=== PATIENT | female | born 1955 | race Caucasian/White ===

== ENCOUNTER → 2017-11-22 10:20 | Outpatient (CLI) | payer OTHER, SELFPAY ==
--- NOTE | 2017-11-22 10:25 | HPBI_ITS ---
MAMMOGRAPHY - BILATERAL SCREENING REASON FOR EXAM: Female, 62 years old. Routine annual screening examination. PERTINENT HISTORY: Grandmother with breast cancer. Aunt with breast cancer. TECHNIQUE: Digital bilateral breast tha (3D mammographic acquisition) in the CC and MLO projections. 2-D mediolateral oblique (MLO) and craniocaudad (CC) views of both breasts were obtained. CAD: Full Field Digital Mammography with Computer Added Detection was performed. COMPARISON: Comparison is made with prior study dated October 14, 2016 and April 10, 2014. FINDINGS: Breast Composition: The breasts are heterogeneously dense, which may obscure small masses. There are no dominant masses or suspicious calcifications. No other significant abnormalities are identified. There has been no significant change since the prior study. HPBI/SCREENING MAMM (CAD), BILAT IMPRESSION: Stable bilateral screening mammogram. Yearly follow-up mammogram recommended. (A) ASSESSMENT CATEGORY: BIRADS Category 1: Negative. A letter regarding these results will be sent to the patient by the facility within 30 days. Approximately 10% of breast cancers are not detected by mammography. A normal mammogram should not delay biopsy of a clinically suspicious abnormality. [id number] Electronically Signed: Harshad Robbins MD at 11:27 EST Tel [phone], Service support ,
== END ==
PROVIDERS: Family Provider Internal Medicine; PCP Internal Medicine; Visit Provider Internal Medicine
DX: Z12.31 Encounter for screening mammogram for malignant neoplasm of breast (principal)
CPT/HCPCS: 77063; 77067

== ENCOUNTER → 2018-07-23 10:12 | Outpatient (CLI) | payer OTHER, SELFPAY ==
--- NOTE | 2018-07-23 10:15 | RAD_ITS ---
STUDY: X-RAY - RIGHT KNEE REASON FOR EXAM: Female, 62 years old. Chronic pain TECHNIQUE: 4 view(s) of the knee. COMPARISON: None. FINDINGS: There is demineralization of the visualized distal femur. There is demineralization of the tibia and fibula. There is arthrosis of the proximal tibiofibular articulation. There is moderate degenerative arthrosis of the medial femorotibial compartment with moderate joint space narrowing. There is moderate degenerative arthrosis of the lateral femorotibial compartment with moderate joint space narrowing. There is moderate degenerative arthrosis of the patellofemoral articulation. The soft tissue structures are unremarkable. RAD/Knee 4 or More Views IMPRESSION: Moderate Degenerative arthrosis. Electronically Signed: Sonali Munoz MD at 18:28 EDT Tel , Service support ,
== END ==
PROVIDERS: Family Provider Internal Medicine; PCP Internal Medicine; Referring Provider Physician Assistant; Visit Provider Physician Assistant
DX: M25.561 Pain in right knee (principal)
CPT/HCPCS: 73564

== ENCOUNTER → 2018-08-11 08:49 | Outpatient (CLI) | payer OTHER, SELFPAY ==
--- NOTE | 2018-08-11 08:53 | CT_ITS ---
STUDY: CT MAXILLOFACIAL SINUSES REASON FOR EXAM: Female, 62 years old. Sinusitis, balloon surgery 2014, right-sided sinus surgery 1985. RADIATION DOSAGE (If Supplied By Facility): CTDIvol = ( 33.06 ) mGy, DLP = ( 767.73 ) mGycm TECHNIQUE: The patient was scanned in a multi detector CT scanner. High resolution axial imaging was performed without the administration of intravenous contrast material. Sagittal and coronal images were reconstructed. Individualized dose optimization techniques were used for this CT. COMPARISON: Sinus CT 08/14/2015. FINDINGS: FRONTAL SINUSES: Normal aeration, without mucosal inflammatory disease. ETHMOIDAL SINUSES: Normal aeration, without mucosal inflammatory disease. MAXILLARY SINUSES: Minimal mucoperiosteal thickening at the base of the right maxillary sinus. SPHENOIDAL SINUSES: Mucous retention cysts and mucoperiosteal thickening at the base of the sphenoid sinuses bilaterally more prominent in the central sphenoid. Midline nasal septum. Craniofacial osseous structures intact. Superficial and deep facial soft tissues and orbital contents appear normal. Normal brain in limited evaluation. Mastoid air cells and middle ear cavities clear. CT/Sinus/Facial Bone IMPRESSION: Right maxillary, and ethmoid mild sinus disease with more prominent disease in the sphenoid sinuses. Electronically Signed: Andrea Dalal, at 23:16 EST Tel , Service support ,
== END ==
PROVIDERS: Family Provider Internal Medicine; PCP Internal Medicine; Referring Provider Otolaryngology; Visit Provider Otolaryngology
DX: J32.9 Chronic sinusitis, unspecified (principal)
CPT/HCPCS: 70486

== ENCOUNTER 2018-08-31 09:00 | Outpatient (RCR) | payer OTHER, SELFPAY ==
--- NOTE | 2018-07-30 14:55 | HP.PTEVAL_ITS ---
Patient's Visit Information KATARINA FRITZ is a 62 year old F referred to Physical Therapy by AYAZ Louise with a diagnosis of Right Knee Pain. Date of Evaluation: 07/30/18 Physical Therapist: Paula Richardson - Visit Plan Frequency: 2x /Week Duration: 4 Weeks Plan: Ultrasound for modality of choice- strength and stabilization. - Subjective Subjective: Right knee is bone on bone- on/off for years had a bad cut and had it cleaned out and sitched inside/out when she was 13- really bad the last few months-Medial joint line- Will radiate to the ankle and hip like a toothache. Had a cortisone injection which helped- July 23, 2018. X-rays which showed bone on bone. Worst: 7/10 Agg:getting down with her grandaughter, turning her leg the wrong way. Eases: elevation in the chair. Best: 0/10. No N/T in the toes. Active outside and inside. Sleep: not disturbed since the injection but would sometimes sleep with a pillow between the knees before. No orthotics in the shoes. The left knee doesn't bother her at all. Does not work outside her home- retired from [employer]. Does not do daily exercises- thinking about joining [employer]. PMhx: none meds: none. 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 - Objective Posture: FH, RS- can correct with verbal cues. Gait: slightly antalgic with decreased stance on the right LE- decreased heel strike. Stairs: asc/desc recip with no HR, desc uncontrolled. HR/TR: able but reports pain with Tr. SLS: 15 sec without LOB but increased muscle activation and reports discomfort. Palpation: tender along medial joint line. ROM: 0-130 degrees. Sensation/Reflex: WNL. Flex: Gastroc: moderate, Hamstring: moderate. Strength: ankle: 5/5, knee: 4+/5, Hip: 4/5 throughout, Core: fair - Goals Goal 1:: Patient will be I with HEP and progression Goal Time Frame: 4-6 Weeks Goal 2:: Patient will demo 5/5 strength in LE where deficit Goal Time Frame: 4-6 Weeks Goal 3:: Patient will report 0/10 pain for 1 week Goal Time Frame: 4-6 Weeks Goal 4:: Patient will maintain proper posture t/o tx session to demo increased core s/s Goal Time Frame: 4-6 Weeks - Rehabilitation Potential Physical Therapy Diagnosis: Patient presents with hypomobility- she has decreased strength and muscular endurance leading to increased pain with ADL's. Rehabilitation Potential: Fair - Anticipated Interventions Therapeutic Exercise to Include: Strength training, Endurance training, Balance training, Body mechanics, Postural training, Flexibilty training, Gait and locomotor training, Dynamic Lumbar Stabilization, Scapular Strength/Stabilization For the Purpose of:: To improve muscle performance and motor function TENS: Yes Cryotherapy (ice pack, ice massage): Yes Thermo therapy (hot pack): Yes Ultrasound (thermal/non thermal): Yes For the Purpose of:: To decrease pain Thank you for the opportunity to evaluate your patient. For Medicare and Medicare HMO plans, please review the plan of care and approve it. It will need to be FAXED BACK to us at [phone] for Medicare purposes. Please let me know if there are questions or concerns regarding this plan of care. Physician Signature: Date:
--- NOTE | 2019-01-24 13:19 | HP.PT.NRP ---
HP - Discharge Summary (1) - Patient Information KATARINA FRITZ was seen in my office for initial evaluation on 07/30/18. The following Plan of Care was established for this patient: Initial Frequency: 2x /Week Initial Duration: 4 Weeks - Anticipated Interventions Therapeutic Exercise to Include: Strength training, Endurance training, Balance training, Body mechanics, Postural training, Flexibilty training, Gait and locomotor training, Dynamic Lumbar Stabilization, Scapular Strength/Stabilization For the Purpose of:: To improve muscle performance and motor function TENS: Yes Cryotherapy (ice pack, ice massage): Yes Thermo therapy (hot pack): Yes Ultrasound (thermal/non thermal): Yes For the Purpose of:: To decrease pain This patient was last seen in our office . Pertinent comments regarding their Physical therapy will appear below: Patient has not attended physical therapy is over 30 days- appropriate to be d/c from PT and return to MD as needed for further evaluation. At this point I will be discontinuing this patient from physical therapy. I would be happy to see this patient again in the future if found appropriate by the physician. Thank you! DANAE RamirezT
== END 2018-08-31 19:00 | disposition home or self-care (01) ==
LOC: PT 09:00
PROVIDERS: Family Provider Internal Medicine; PCP Internal Medicine; Referring Provider Physician Assistant; Visit Provider Physician Assistant
DX: M17.12 Unilateral primary osteoarthritis, left knee (principal)
CPT/HCPCS: 97035; 97110; 97161; 97164

== ENCOUNTER 2018-10-23 07:35 | Day surgery (SDC) | payer OTHER, SELFPAY ==
--- NOTE | 2018-10-19 10:08 | EKG12_ITS ---
Test Reason : PRE-OP Blood Pressure : / mmHG Vent. Rate : 061 BPM Atrial Rate : 061 BPM P-R Int : 124 ms QRS Dur : 088 ms QT Int : 410 ms P-R-T Axes : 016 069 040 degrees QTc Int : 412 ms Normal sinus rhythm Minimal voltage criteria for LVH, may be normal variant Borderline ECG Confirmed by TOMEKA CLARK, GABRIELLE ([id number]), sports editor KEIKO TIDWELL ([id number]) on 10/23/2018 3:06:51 PM Referred By: Vahid Mosquera Confirmed By:GABRIELLE ECKERT MD
[2018-10-23] VITALS (7 sets, daily range): BP systolic 121–142; BP diastolic 70–83; PULSE 72–85; RESP 14–16; TEMP 36.2–36.8; O2SAT 94–99
--- NOTE | 2018-10-23 | ETH_PTH ---
PATIENT: KATARINA FRITZ [place] [facility] [id number] AGE/SX: 63/F ROOM: RE10/23/[address]: Dr. Braxton Mosquera MD : 1955 BED: DIS: 10/23/2018 SPEC #: [id number] RECD: 10/23/18 14:42 STATUS: TULIO REOanh #: [id number] TJ: 10/23/18 00:[address]: Braxton Mosquera DEPT: SURGICAL PATHOLOGY RECD BY: Shane Anand ENTERED: 10/23/18 14:42 SP TYPE: ETH TISS OTHR DR: Dr. Sheila Gomes MD Tissues: A - Ethmoid sinus, NOS B - Ethmoid sinus, NOS Procedures: Decalcification bone/plaque Surgery Specimen Level III HEADER OPERATION: Functional endoscopic sinus surgery, Navigation PRE-OP DIAGNOSIS: Chronic sinusitis TISSUE SUBMITTED: A - Contents right maxillary and ethmoid sinus, B - Contents left maxillary and ethmoid sinus MICROSCOPIC DIAGNOSIS A. Right maxillary and ethmoid sinus, excision: Consistent with chronic sinusitis. Fragments of bone with no pathologic change. B. Left maxillary and ethmoid sinus, excision: Consistent with chronic sinusitis. Fragments of bone with no pathologic change. AM:jamison 10/26/18 MICROSCOPIC DESCRIPTION Slides are reviewed. GROSS DESCRIPTION A - Received in fixative is one container labeled with the patient's name and designated contents right maxillary and ethmoid sinus. The specimen consists of multiple irregular fragments of pink-rios bone and soft tissue and possible turbinates that in aggregate measure 5 x 3 x 0.5 cm. The specimen is totally submitted in two cassettes after decalcification. B - Received in fixative is one container labeled with the patient's name and designated contents left maxillary and ethmoid sinus. The specimen consists of multiple irregular fragments of pink-rios bone and soft tissue and possible turbinates that in aggregate measure 6 x 5 x 0.2 cm. The specimen is totally submitted in two cassettes after decalcification. / AM:jamison 10/23/18 TC:3 CPT: 26195 x2, 64198 x2
[2018-10-23] MEDS: Oxymetazoline 0.05% 1 SPRAY SPRAY.BTL 15 SPRAY (10:45)
--- NOTE | 2018-10-23 11:38 | DCINST_ITS ---
You will use the following diet at home:: No restrictions Your food should be the consistency of: Regular Discharge Activity: May not drive while taking narcotic pain medications. Call your doctor if your incision/area has: Sudden Increased Bleeding Allergies/Adverse Reactions: Allergies No Known Allergies Allergy (Unverified 10/18/18 10:54) Medications to take at Discharge multivitamin tablet 1 tab PO DAILY 07/23/18 Acetaminophen/Codeine #3 [Tylenol#3] 1 tab PO Q6H PRN PRN #15 tab 10/23/18 levoFLOXacin tablet [Levaquin tablet] 750 mg PO DAILY #7 tab 10/23/18 The following prescriptions were given: Acetaminophen/Codeine #3 [Tylenol#3] 1 tab PO Q6H PRN PRN #15 tab PRN Reason: Pain levoFLOXacin tablet [Levaquin tablet] 750 mg PO DAILY #7 tab Orders to be completed after discharge: 12 Lead EKG [[facility]] Time Frame: 10/18/18, Facility: [facility] [place], Location: Cardiovascular Services Primary Care Physician: Sheila Gomes MD [Primary Care Provider] - Test Results: Test results from this visit will be discussed in further detail at your follow- up appointment, if applicable. Please Follow Up With: Vahid Mosquera MD When: 1 week
--- NOTE | 2018-10-23 12:03 | OP.PCM_ITS ---
Problem List (1) Chronic pansinusitis Status: Chronic Report of Operation Date of Procedure: 10/23/18 Pre-Operative Diagnosis: chronic pansinusitis Post-Operative Diagnosis: chronic pansinusitis Surgery/Procedure Performed:: 1. endoscopic total ethmoidectomy with sphenoidotomy, right and left. 2. endoscopic maxillary antrostomy, right and left. 3. endoscopic frontal sinus exploration, right and left. 4. CT guided navigation. 5. extensive removal polyps Type of Anesthesia:: General Description of Procedure: on the day of the procedure, after appropriate informed consent was obtained, the patient was brought to the operating room and placed in supine position on the operating table. she was placed under general endotracheal anesthesia. the endotracheal tube was secured, the eyes were lubricated. the nose was decongested with oxymetazoline soaked pledgets and the [employer] navigation was set up and accuracy confirmed. the zero degree endoscope was used to evaluate the left nasal cavity. an uncinectomy/antrostomy was completed with a elvis elevator. the antrostomy was widened with a back biter. contents were evacuated. the ethmoid bulla was entered bluntly with the suction catheter. a total ethmoidectomy was performed with a j curette and a blakesley. this was taken superiorly to the skull base and laterally to the lamina. a stankewicz maneuver was performed and no laminar defect was noted. numerous polyps were removed from the ethmoid sinuses with the microdebrider. the natural sphenoid os was widened with the microdebrider and contents were evacuated. bleeding areas were cauterized and pledgets were placed. hemostasis was achieved. the zero degree endoscope was used to evaluate the right nasal cavity. an uncinectomy/antrostomy was completed with a elvis elevator. the antrostomy was widened with a back biter. contents were evacuated. the ethmoid bulla was entered bluntly with the suction catheter. a total ethmoidectomy was performed with a j curette and a blakesley. this was taken superiorly to the skull base and laterally to the lamina. a stankewicz maneuver was performed and no laminar defect was noted. numerous polyps were removed from the ethmoid sinuses with the microdebrider. the natural sphenoid os was widened with the microdebrider and contents were evacuated. bleeding areas were cauterized and pledgets were placed. hemostasis was achieved. the patient was awoken from anesthesia and transferred to the PACU in stable condition.
== END 2018-10-23 15:15 | disposition home or self-care (01) ==
LOC: SDC 07:36 → AC 07:36
PROVIDERS: Family Provider Internal Medicine; PCP Internal Medicine; Referring Provider Otolaryngology; Visit Provider Otolaryngology
DX: J32.4 Chronic pansinusitis (principal)
CPT/HCPCS: 31253; 31256; 31259; 88304; 88305; 88311; 93005; J7120; J2405

== ENCOUNTER → 2018-11-28 13:34 | Outpatient (CLI) | payer OTHER, SELFPAY ==
--- NOTE | 2018-11-28 13:37 | BI_ITS ---
MAMMOGRAPHY - BILATERAL SCREENING REASON FOR EXAM: Female, 63 years old. Routine annual screening examination. PERTINENT HISTORY: Grandmother with breast cancer. Aunt with breast cancer. TECHNIQUE: Digital bilateral breast tha (3D mammographic acquisition) in the CC and MLO projections. 2-D mediolateral oblique (MLO) and craniocaudad (CC) views of both breasts were obtained. CAD: Full Field Digital Mammography with Computer Added Detection was performed. COMPARISON: Comparison is made with prior study of November 22, 1999 8:15 and October 22, 2016. FINDINGS: Breast Composition: The breasts are heterogeneously dense, which may obscure small masses. There are no dominant masses or suspicious calcifications. No other significant abnormalities are identified. There has been no significant change since the prior study. BI/SCREENING MAMM (CAD), BILAT IMPRESSION: Stable bilateral screening mammogram. Yearly follow-up mammogram recommended. (A) ASSESSMENT CATEGORY: BIRADS Category 1: Negative. A letter regarding these results will be sent to the patient by the facility within 30 days. Approximately 10% of breast cancers are not detected by mammography. A normal mammogram should not delay biopsy of a clinically suspicious abnormality. [id number] Electronically Signed: Harshad Robbins, at 15:11 EST , Service support ,
== END ==
PROVIDERS: Family Provider Internal Medicine; PCP Internal Medicine; Referring Provider Internal Medicine; Visit Provider Internal Medicine
DX: Z12.31 Encounter for screening mammogram for malignant neoplasm of breast (principal); Z80.3 Family history of malignant neoplasm of breast
CPT/HCPCS: 77063; 77067

== ENCOUNTER → 2019-03-27 15:57 | Outpatient (CLI) | payer OTHER, SELFPAY | PROVIDERS: Family Provider Internal Medicine; PCP Internal Medicine; Referring Provider Otolaryngology; Visit Provider Otolaryngology | DX: J32.9 Chronic sinusitis, unspecified (principal) | CPT/HCPCS: 87070; 87077; 87186; 87205 ==

== ENCOUNTER → 2019-05-17 15:44 | Outpatient (CLI) | payer OTHER, SELFPAY | PROVIDERS: Family Provider Internal Medicine; PCP Internal Medicine; Referring Provider Otolaryngology; Visit Provider Otolaryngology | DX: J32.9 Chronic sinusitis, unspecified (principal) | CPT/HCPCS: 87070; 87077; 87186; 87205 ==

== ENCOUNTER → 2020-05-26 16:26 | Outpatient (CLI) | payer OTHER, SELFPAY ==
--- NOTE | 2020-05-26 16:27 | RAD_ITS ---
STUDY: X-RAY - LEFT KNEE REASON FOR EXAM: Female, 64 years old. Pain. TECHNIQUE: 4 view(s) of the knee. COMPARISON: None. FINDINGS: There is no evidence of fracture or dislocation. There is a moderate joint effusion. There are mild tricompartment degenerative changes. There are no radiodense foreign bodies. RAD/Knee 4 or More Views IMPRESSION: No fracture or dislocation in the left knee. Mild degenerative change. Moderate joint effusion. Electronically Signed: Ford Castro, at 16:56 EDT Tel , Service support ,
== END ==
PROVIDERS: PCP Internal Medicine; Referring Provider Physician Assistant Surgical; Visit Provider Physician Assistant Surgical
DX: S86.912A Strain of unspecified muscle(s) and tendon(s) at lower leg level, left leg, initial encounter (principal)
CPT/HCPCS: 73564

== ENCOUNTER → 2020-05-28 12:16 | Outpatient (CLI) | payer OTHER, SELFPAY ==
[2020-05-28 13:15] LABS: CRYSTALS, BODY FLUID See PATH REV
[2020-05-28 13:25] LABS: Synovial Fld Mononuclear WBC % 84.9 %; Synovial Fld Polynuclear WBC # 0.068 10^3/uL; Synovial Fld Polynuclear WBC % 15.1 %
[2020-05-28 14:02] LABS: Body Fluid QC Type(s) BF1Q,BF2Q,BF3Q; RBC /Synovial Fluid 95 /mm3 (0)
[2020-05-28 14:08] LABS: AUTO B FLUID DILUENT BKGD CT WBC <0.1 RBC <0.01 (W<.1,R<.01)
[2020-05-28 14:09] LABS: Color / Synovial Fluid Straw (Pale Yellow); Source- Body Fluid SYNOVIAL; Viscosity / Synovial Fluid Sl. Viscous (HIGH)
[2020-05-28 14:10] LABS: Appearance /Synovial Fluid Clear (CLEAR); Lymph 24 %; Monocyte /Synovial Fluid 64 %; Neutrophil 11 % (0-25); Other Cell /Synovial Fluid 1 %
[2020-05-29 12:30] LABS: Pathologist Review Reviewed
[2020-05-29 12:31] LABS: Pathologist Comment Reviewed
[2020-05-29 15:23] LABS: GLUCOSE, SYNOVIAL FLUID 88 mg/dL (.); PROTEIN, SYNOVIAL FLUID 3.4 g/dL (.)
== END ==
PROVIDERS: PCP Internal Medicine; Visit Provider Physician Assistant
DX: M25.562 Pain in left knee (principal); M25.462 Effusion, left knee
CPT/HCPCS: 82945; 84157; 87070; 87075; 87205; 89050; 89051; 89060

== ENCOUNTER → 2020-06-06 08:48 | Outpatient (CLI) | payer OTHER, SELFPAY ==
--- NOTE | 2020-06-06 08:50 | MRI_ITS ---
STUDY: MRI LEFT KNEE REASON FOR EXAM: Female, 64 years old. Swelling. TECHNIQUE: Standardized fat and water weighted pulse sequences were obtained in all 3 orthogonal planes. COMPARISON: May 26, 2020 FINDINGS: There is medial meniscus tear of the posterior horn and body, series 3 images / through . There is diffuse, greater than 50% thickness articular cartilage loss of the medial femorotibial compartment. There is mild osteoarthritic spur formation of the medial knee compartment. There is reactive marrow edema of the medial tibial plateau. There is a partial sprain of the MCL with interstitial and periligamentous edema. Normal distal semimembranosus, gracilis and semitendinosus tendons. Normal lateral meniscus. Normal hyaline cartilage of the lateral femorotibial compartment. Normal lateral femoral condyle and tibial plateau. Normal proximal tibiofibular articulation. Normal lateral collateral (fibular) ligament. Normal popliteus tendon. Normal biceps femoris tendon. Normal anterior cruciate ligament (ACL). Normal posterior cruciate ligament (PCL). There is arthrosis of the patellofemoral articulation. There is moderate spurring. There is diffuse, full thickness articular cartilage loss of the patellofemoral compartment. Normal medial and lateral patellar retinaculum. Normal quadriceps tendon. Normal patellar tendon. Normal Hoffa''s fat pad. There is a large volume joint effusion. The soft tissues are unremarkable. The otherwise visualized osseous structures are unremarkable. MRI/Lower Ext Joint Only (Routine) IMPRESSION: Medial meniscus tear. Degenerative change. Stress injury/stress fracture of the medial tibial plateau. Joint effusion. Electronically Signed: Pato Jeffries MD at 10:17 EDT , Service support ,
== END ==
PROVIDERS: PCP Internal Medicine; Referring Provider Physician Assistant; Visit Provider Physician Assistant
DX: S86.912A Strain of unspecified muscle(s) and tendon(s) at lower leg level, left leg, initial encounter (principal); X58.XXXA Exposure to other specified factors, initial encounter
CPT/HCPCS: 73721

== ENCOUNTER 2020-07-03 06:44 | Day surgery (SDC) | payer OTHER, SELFPAY ==
[2020-07-03] VITALS (9 sets, daily range): BP systolic 110–133; BP diastolic 64–79; PULSE 80–98; RESP 16–17; TEMP 36–37.1; O2SAT 94–99; BMI 24.1
[2020-07-03] MEDS: Epinephrine (1 mg/ml) 1 MG/ML VIAL (06:53)
--- NOTE | 2020-07-03 07:14 | PCM.HP.BLA ---
History and Physical I have re-examined the patient. There are no clinical changes since date of exam. Intake Intake Visit Reasons: Left knee Accompanied by: self Is patient in pain?: Yes Allergies acetaminophen [From Percocet] Adverse Reaction (Verified 05/28/20 08:36) nausea, vom oxycodone [From Percocet] Adverse Reaction (Verified 05/28/20 08:36) nausea, vom Medications meloxicam 15 mg tablet 15 mg PO DAILY #30 tab 05/28/20 [Rx Confirmed 06/11/20] PFSH Social History (Updated 06/11/20 @ 12:31 by Tomas JACOME, PA) Smoking Status: Never smoker alcohol intake: current alcohol intake frequency: holidays/special occasions only what type of physical activity do you participate in: walking HPI Left knee: Details: Parts of this documentation were recorded by a scribe, this documentation accurately reflects the service provided and the decisions made by me, AYAZ Louise 06/11/20 0802. KATARINA FRITZ is a 64 year old F here today for F/U on left knee after having MRI completed. Patient continues to have medial knee pain and pain into her anterior romo. Denies numbness, tingling or other associated symptoms. Has had painful popping and clicking. Denies any new injuries. States that her pain has worsened. ELIZABETH Vargas Reports joint pain, Reports joint swelling, Denies numbness, Denies tingling Skin/Breast Reports system reviewed and no additional complaints, except as docu Neuro No numbness, No tingling Ortho Exam Left Knee Skin/Wound: No ecchymosis, No erythema, Yes swelling (Minor at this time) Homans Sign: No Knee ROM: Yes ROM-Extension -20 to 0, No ROM-Flexion 0-140 Examination: Yes med jt line tenderness, No Lat jt line tenderness, Yes TTP inf pole patella, Yes Pain with flexion, Yes TTP Pes Anserine Stability: NML: Valgus 30, NML: Varus 30 Patella Grind: Yes KNEE: Inspection of the left knee still shows a very minor swelling of the knee at the same time this is much improved and there is no evident effusion of the knee today. There is no skin changes noted today. She does have full extension however continues to lack flexion although this is improved as the swelling has also improved. She continues to have tenderness on palpation of the medial joint line and distally on the tibia. She has normal sensation throughout the extremity normal distal pulses. Assessment & Plan Problems 1. Injury of left knee, subsequent encounter S89.92XD 2. Chronic pain of left knee M25.562; G89.29 Plan Patient presents the office today for follow-up of MRI of her left knee. She is continued have pain although she states that the pain in the knee has improved some however she is getting pain that is going down the medial knee and of the proximal tibia. Impression as well as the images of the MRI were reviewed with patient showing evident edema with a evident meniscus tear. I think this does correspond with her physical exam findings. At this time patient has done physical therapy and has tried injections without relief. At this time we did discuss that with failed conservative treatment and with recent MRI findings that the neck step would be arthroscopy of the knee to evaluate the meniscus for treatment. We discussed that with the edema in the medial tibial plateau the possibility of a micro internal fixation. Risks and benefits of the surgical procedures were discussed with patient as well as rehabilitation timeframes. All of her questions were answered at this time and consent was signed in office today. Patient be contacted by our office to determine the day of her surgery. She will also be then contacted by the surgery department for preanesthesia testing. Patient will have a COVID-19 test proximally 72 hours prior to her procedure. At this time I do want her to be on crutches being only toe-touch weightbearing as to not see progression of the tibial plateau edema. She can notify our office in the meantime with any other questions or concerns. I discussed with her that I would have to review the MRI with our surgeon and then will notify her to make sure that the neck step in treatment is appropriate. This note was generated with [employer] software. It may contain incorrect words, spelling, and punctuation that were not noted in checking the note before signing. This note was generated with [employer] software. It may contain incorrect words, spelling, and punctuation that were not noted in checking the note before signing. We discussed the current risk associated COVID-19. While it is understood that there is a community spread of COVID 19 the risk of penny COVID-19 while at [facility] is very low, however, the risk cannot be completely mitigated because of the community spread of the disease. We discussed in detail the risk of exposure to and or potential harm posed by the COVID-19 virus with having a surgery/procedure at this time versus the risk of delaying the surgery/procedure. Is not possible to know either the risk of delaying the surgery procedure or chance of getting an infection with perfect accuracy, but a joint decision was made to proceed at this time with a schedule surgery/procedure as indicated on the consent form. Patient was notified that we will need to comply with any screening or testing [facility] wishes to perform or that surgery may be delayed for any positive results. Orders Orders: Tibia & Fibula 2 Views Today M79.605 Coding Level of Care Code Off vis,est,level 3 Diagnoses Injury of left knee, subsequent encounter S89.92XD ??Encounter type: subsequent encounter Chronic pain of left knee M25.562; G89.29 ??Chronicity: chronic
[2020-07-03] MEDS: Lactated Ringers 1,000 ML 100 ML IV (07:25)
[2020-07-03] MEDS: Cefazolin 2 GM in 0.9% Normal Saline 100 ML IV (07:52)
--- NOTE | 2020-07-03 08:25 | RAD_ITS ---
STUDY: X-RAY - LEFT KNEE REASON FOR EXAM: Female, 64 years old. INTRA OP KNEE TECHNIQUE: view(s) of the knee. COMPARISON: None. FINDINGS: Fluoroscopy one view. There is a straight metallic marker overlying the tibia. RAD/Knee 1 or 2 Views IMPRESSION: Left knee procedure one view fluoroscopy showing a procedure in progress. Electronically Signed: Sonali Munoz MD at 7:03 EDT Tel , Service support ,
[2020-07-03] MEDS: Bupiv/Epi 0.25% 30 ML Vial (09:00)
[2020-07-03] MEDS: Mupirocin Ointment 22gm Tube 1 APPLIC (09:05)
--- NOTE | 2020-07-03 09:06 | DCINST_ITS ---
Discharge Diet: No Restrictions - Remove dressings postop day 4 and apply Band- Aids to incision sites, may shower and get incision wet postop day 4, non weight-bear left leg, call with increased pain numbness tingling or further issues arise, call if calf pain or calf swelling, 1, take pain medications as prescribed do not take any other Tylenol products, follow-up in 2 weeks Discharge Activity: May Not Drive May shower in (days): 1 Ice area for (Minutes): 20 - Every hour while awake. Weight Bearing Status: Weight bearing as tolerated Keep extremity elevated above heart level: Operative Extremity Call your doctor if your incision/area has: Continuous Slow Oozing, Sudden Increased Bleeding, Increased Pain/ Swelling, Increased Redness, Foul Smelling Discharge Call your doctor if you observe: Fever of 101 or Higher, Coldness, Increased Pain, Numbness or Tingling, Change in Color, Calf discomfort Allergies/Adverse Reactions: Allergies acetaminophen [From Percocet] Adverse Reaction (Verified 06/23/20 10:17) nausea, vom oxycodone [From Percocet] Adverse Reaction (Verified 06/23/20 10:17) nausea, vom Medications to take at Discharge Ibuprofen [Ibuprofen Ib] 400 mg PO PRN PRN 06/23/20 Multivitamin with Minerals [Multiple Vitamin] 1 ea PO DAILY 06/23/20 Hydrocodone Bitart/Apap 5-325 [Bronson 5MG-325MG] 1 - 2 tablet PO Q6H PRN PRN 5 Days #40 tablet 07/03/20 Ondansetron [Zofran] 8 mg PO Q8H PRN PRN #20 tab 07/03/20 The following prescriptions were given: Hydrocodone Bitart/Apap 5-325 [Bronson 5MG-325MG] 1 - 2 tablet PO Q6H PRN PRN 5 Days #40 tablet PRN Reason: Pain Transmission Status: Sent to [facility] Ondansetron [Zofran] 8 mg PO Q8H PRN PRN #20 tab PRN Reason: Nausea Transmission Status: Pending to [facility] Primary Care Physician: Sheila Gomes MD [Primary Care Provider] - Test Results: Test results from this visit will be discussed in further detail at your follow- up appointment, if applicable. Please Follow Up With: Orly Ortiz, DO - [phone]
--- NOTE | 2020-07-03 09:07 | PCM.OPRPT ---
Report of Operation Date of Procedure: 07/03/20 Pre-Operative Diagnosis: left knee osteoarthritis, medial meniscus tear, extensive synovitis Post-Operative Diagnosis: same Surgery/Procedure Performed:: left knee arthroscopy, extensive synovectomy, partial medial meniscectomy, patella and lfc osteophyte debridement, microinternal fixation medial tibial plateau android developer: Tomas Alvarado Type of Anesthesia:: General Anesthesiologist: Morris Barkley Drains: [id number] Estimated Blood Loss (mL): min Fluids Replaced: 800cc lr Description of Procedure: Preop note Patient is 64-year-old female with continued mid knee pain swelling and radiating pain down her medial tibial romo. X-rays not show much arthritis however MRI does show that she has loss of cartilage as well as an extruded meniscus and a radial tear of her posterior horn of the medial meniscus as well as some edema in her tibial plateau. Patient failed conservative treatment and elected proceed with left knee arthroscopy repair as indicated. Risks including risks benefits discussed with patient. Risk include but not limited to blood loss, blood clot, infection, neurovascular, failure procedure, loss of life and loss of limb. Patient is aware like proceed with left knee arthroscopy repair as indicated including micro internal fixation of the medial tibial plateau. We discussed the current risk associated COVID-19. While it is understood that there is a community spread of COVID 19 the risk of penny COVID-19 while at [facility] is very low, however, the risk cannot be completely mitigated because of the community spread of the disease. We discussed in detail the risk of exposure to and or potential harm posed by the COVID-19 virus with having a surgery/procedure at this time versus the risk of delaying the surgery/procedure. Is not possible to know either the risk of delaying the surgery procedure or chance of getting an infection with perfect accuracy, but a joint decision was made to proceed at this time with a schedule surgery/procedure as indicated on the consent form. Patient was notified that we will need to comply with any screening or testing [facility] wishes to perform or that surgery may be delayed for any positive results. Operative note Patient seen and examined preoperative holding area. Left knee was marked. Patient brought to the operating room placed supine on the operating table. Signed, anesthesia, antibiotics were administered. Left leg was prepped and draped in usual sterile technique with a tourniquet around her upper thigh. All bony prominences well-padded and SCDs placed on her contralateral limb. Marked her incision for medial lateral portal placement. The left leg was then elevate exsanguinated tourniquet raised her pressure of 250 torr. Timeout was performed. We then used a 11 blade to create a anterolateral portal began our diagnostic arthroscopy. She had grade 3 eburnated changes of her patella femoral side she had grade 4 about a 1 x 3 cm lesion of her medial femoral condyle. We then moved to the medial joint line where we created an anteromedial portal under direct visualization. We then inserted a shaver she had extensive synovitis in the anterior medial anterior lateral recesses. After this was complete we then were able to visualize the medial meniscus which was torn was a radial tear of the posterior horn itself was stable with however had balled up we did resect this with combination of a shaver and a basket. We then reinserted the probe and we had stable remnant meniscus remaining. We then moved to the ACL the ACL PCL were present within the notch. There was a large osteophyte in the lateral lateral femoral condyle that was debrided. There was also an osteophyte in the lateral edge of the patella that was debriding the cartilage underneath and I think it is the is the etiology of the cause why she has some bony eburnated changes where they articulated on the medial femoral condyle. This was also debrided. To the lateral joint line. She had grade 2 changes of her lateral femoral condyle her started the lateral tibial plateau her lateral femoral condyle was intact. We and we probed the lateral meniscus which was intact and stable probing. Based on preoperative review of the patient's right knee MRI location of the bone marrow lesion consistent with insufficiency stress fracture in the medial tibial plateau was identified. Preoperative surgical planning allow for determination of the optimal method for assessing the lesion. Intraoperatively, image fluoroscopy combined with bone target instruments from [employer] were used to guide surgical instruments into the proximity of the subchondral medial tibial plateau fracture. [employer] knee [employer] acupoint injection cannula was drilled into the subchondral bone. Standard repair methodology was used to treat the subchondral bone defect in the medial tibial plateau. Image fluoroscopy was utilized to confirm accurate insertion of the acupoint injection cannula into the subchondral fracture. After insertion, fracture stabilization was performed by injecting approximately 2 cc of Trent knee [employer] bone substitute material into the medial tibial plateau. Image fluoroscopy was used to monitor the injection process and ensure injection of the bone substitute into the subchondral bone so that the bio material flowed into the fracture site to stabilize the fracture and facilitate fracture repair. The incision was irrigated with copious nonsterile saline. We then reinserted the scope into the need to ensure that there is no extravasation of the material into the knee joint which there was not. The wounds were closed with interrupted 4-0 nylon stitches. Sterile dressings were applied tourniquet was inflated for total working time of 25 minutes. Patient tolerated procedure well there were no comp occasions patient was transferred to the recovery room in stable condition. Flutter sub-chondroplasty Operative note postoperative note Nonweightbearing left leg Pharmacy has prescriptions Follow-up on Monday for dressing change initiation of physical therapy Call with concerns Elevate ice ankle pumps to decrease risk of blood clots This note was generated with Flutter dictation software. It may contain incorrect words, spelling, and punctuation that were not noted in checking the note before signing. Grafts/Implants Used: trent microinternal fixation
[2020-07-03] MEDS: proMETHazine 25 MG/ML Syringe 12.5 MG IV (11:51)
== END 2020-07-03 13:21 | disposition home or self-care (01) ==
LOC: SDC 06:46 → AC 06:46
PROVIDERS: Anesthesiology; PCP Internal Medicine; Referring Provider Orthopaedic Surgery; Visit Provider Orthopaedic Surgery
PROC: (CPT 29882; principal; 2020-07-03 08:10)
DX: M17.12 Unilateral primary osteoarthritis, left knee (principal); M84.362A Stress fracture, left tibia, initial encounter for fracture; M65.162 Other infective (teno)synovitis, left knee; S83.242A Other tear of medial meniscus, current injury, left knee, initial encounter; X58.XXXA Exposure to other specified factors, initial encounter; Y93.9 Activity, unspecified; Y92.9 Unspecified place or not applicable; Y99.9 Unspecified external cause status; G89.29 Other chronic pain; Z11.59 Encounter for screening for other viral diseases; Z88.5 Allergy status to narcotic agent; Z79.1 Long term (current) use of non-steroidal anti-inflammatories (NSAID)
CPT/HCPCS: 01400; 27599; 29881; 64447; 73560; 76000; 87635; C1713; C9803; J7120; A4216; J2405; U0003

== ENCOUNTER → 2020-09-17 | Outpatient (CLI) | payer MEDICARE, BC, SELFPAY | END | disposition home or self-care (01) | LOC: LABSPEC 12:05 | PROVIDERS: PCP Internal Medicine; Referring Provider Otolaryngology; Visit Provider Otolaryngology | DX: J32.9 Chronic sinusitis, unspecified (principal) | CPT/HCPCS: 87070; 87205 ==

== ENCOUNTER → 2020-10-01 15:20 | Outpatient (CLI) | payer MEDICARE, BC, SELFPAY ==
--- NOTE | 2020-10-01 15:22 | MRI_ITS ---
PROCEDURE: MRI LOWER EXTREMITY LEFT TIBIA/FIBULA REASON FOR EXAM: Postoperative left lower leg pain at the proximal medial aspect. TECHNIQUE: Standardized fat and water weighted pulse sequences were obtained in all 3 orthogonal planes. COMPARISON: Radiographs 09/22/2020. FINDINGS: There is a subchondroplasty of the medial tibial plateau with periosteal bone edema of the medial tibial plateau (inversion recovery axial images 9-11). There is mild subchondral bone edema of the lateral tibial plateau (inversion recovery coronal image 10), a stress phenomenon. Otherwise, unremarkable visualized tibia. Normal visualized fibula. There is very mild subchondral bone edema of the medial femoral condyle (inversion recovery coronal images 8, 9), a stress phenomenon. Normal visualized anterior, lateral, and posterior calf compartments, with normal muscles, crural fascia and intermuscular septa. There is very mild edema in the subcutis adipose space of the anterior aspect of the proximal lower leg. There is no discrete solid, cystic or lipomatous mass lesion of the subcutis adipose space. There is a left knee joint effusion MRI/Lower Ext/No Jt/w/o IMPRESSION: Subchondroplasty of the medial tibial plateau with periosteal bone edema of the medial tibial plateau. Mild subchondral bone edema of the lateral tibial plateau and very mild subchondral bone edema of the medial femoral condyle, a stress phenomenon. Left knee joint effusion. Electronically Signed: Vito Alvarado MD at 9:24 EST Tel , Service support ,
== END ==
PROVIDERS: PCP Internal Medicine; Referring Provider Orthopaedic Surgery; Visit Provider Orthopaedic Surgery
DX: Z47.89 Encounter for other orthopedic aftercare (principal); R22.42 Localized swelling, mass and lump, left lower limb; M79.662 Pain in left lower leg; G89.18 Other acute postprocedural pain
CPT/HCPCS: 73718

== ENCOUNTER → 2020-10-09 | Outpatient (CLI) | payer MEDICARE, BC, OTHER, SELFPAY | END | disposition home or self-care (01) | LOC: LABSPEC 15:04 | PROVIDERS: PCP Internal Medicine; Referring Provider Otolaryngology; Visit Provider Otolaryngology | DX: J02.9 Acute pharyngitis, unspecified (principal) | CPT/HCPCS: 87070 ==

== ENCOUNTER → 2020-11-05 | Outpatient (CLI) | payer MEDICARE, BC, OTHER, SELFPAY | END | disposition home or self-care (01) | LOC: LABSPEC 17:03 | PROVIDERS: PCP Internal Medicine; Visit Provider Otolaryngology | DX: J32.9 Chronic sinusitis, unspecified (principal) | CPT/HCPCS: 87070; 87077; 87205 ==

== ENCOUNTER → 2020-12-03 10:52 | Outpatient (CLI) | payer MEDICARE, BC, OTHER, SELFPAY ==
--- NOTE | 2020-12-03 10:56 | BI_ITS ---
MAMMOGRAPHY - BILATERAL SCREENING REASON FOR EXAM: Female, 65 years old. Routine annual screening examination. PERTINENT HISTORY: PAT GRANDMOTHER AGE 80 PAT AUNT AGE 65 PT HAS LOST 13# NO SX/BX TECHNIQUE: Digital bilateral breast lucho (3D mammographic acquisition) in the CC and MLO projections. 2-D mediolateral oblique (MLO) and craniocaudad (CC) views of both breasts were obtained. CAD: Full Field Digital Mammography with Computer Added Detection was performed. COMPARISON: 11/28/2018 and 11/22/2017 FINDINGS: Breast Composition: The breasts are heterogeneously dense, which may obscure small masses. There are no dominant masses or suspicious calcifications. No other significant abnormalities are identified. BI/SCRN MAMM (CAD)W/LUCOH BILAT IMPRESSION: Stable bilateral screening mammogram. Yearly follow-up mammogram recommended. (A) ASSESSMENT CATEGORY: BIRADS Category 2: Benign. A letter regarding these results will be sent to the patient by the facility within 30 days. Approximately 10% of breast cancers are not detected by mammography. A normal mammogram should not delay biopsy of a clinically suspicious abnormality. [id number] Electronically Signed: Libby Novoa MD at 17:22 EST Tel , Service support ,
--- NOTE | 2020-12-03 11:05 | BD_ITS ---
STUDY: DUAL ENERGY X-RAY ABSORPTIOMETRY / DXA REASON FOR EXAM: Female, 65 years old. Z780 TECHNIQUE: Bone Mineral Density (BMD) measurements of lumbar spine and bilateral hips were obtained. COMPARISON: Comparison is made with prior study dated 09/21/2006. FINDINGS: Lumbar Spine (L1-L4): g/cm2 (1.178) / T-score (0.0) / Z-score (1.6) Findings are suggestive of normal bone density with a low fracture risk. Increased kyphosis. Left Femur Total: g/cm2 (0.864) / T-score (-1.1) / Z-score (0.1) Left Femoral Neck: g/cm2 (0.941) / T-score (-0.7) / Z-score (0.8) Right Femur Total: g/cm2 (0.829) / T-score (-1.4) / Z-score (-0.2) Right Femoral Neck: g/cm2 (0.900) / T-score (-1.0) / Z-score (0.5) The T-Scores on the most recent prior examination were: Lumbar Spine (L1-L4): There has been worsening of bone density since the previous examination. Left Femur Total: which represents a worsening of 22.4%. BD/Dexa Bone Density Study IMPRESSION: The patient is considered osteopenic as outlined below according to World [place] Organization (WHO) criteria with a low fracture risk. There has been worsening of bone density since the previous examination. Reference Information: The T-score is the number of standard deviations above or below the standard which is normal for young adults at their peak bone mineral density. The World Health Organization (WHO) interprets the T-scores as follows: Above -1 Normal bone density Between -1 and -2.5 Osteopenia Equal to / or below -2.5 Osteoporosis As a practical clinical guideline, osteopenia may be graded as follows: Mild -1 through -1.5 Moderate -1.6 through -2.0 Severe -2.1 through -2.4 The Z-score is the number of standard deviations above or below age-matched controls. A Z-score of less than -1.5 would be considered abnormal. References: 1. NIH Osteoporosis and Related Bone Diseases www osteo.org 2. International Society for Clinical Densitometry www iscd.org 3. National Osteoporosis Foundation www nof.org Electronically Signed: Harshad Robbins MD at 8:29 EDT , Service support ,
== END ==
PROVIDERS: PCP Internal Medicine; Referring Provider Clinical Nurse Specialist; Visit Provider Clinical Nurse Specialist
DX: Z12.31 Encounter for screening mammogram for malignant neoplasm of breast (principal); Z13.820 Encounter for screening for osteoporosis; Z78.0 Asymptomatic menopausal state
CPT/HCPCS: 77063; 77067; 77080

== ENCOUNTER → 2022-01-21 | Outpatient (CLI) | payer MEDICARE, BC, OTHER, SELFPAY ==
--- NOTE | 2022-01-21 12:11 | BI_ITS ---
MAMMOGRAPHY - BILATERAL SCREENING REASON FOR EXAM: Female, 66 years old. Routine annual screening examination. PERTINENT HISTORY: Grandmother with breast cancer. Aunt with breast cancer. TECHNIQUE: Digital bilateral breast lucho (3D mammographic acquisition) in the CC and MLO projections. 2-D mediolateral oblique (MLO) and craniocaudad (CC) views of both breasts were obtained. CAD: Full Field Digital Mammography with Computer Added Detection was performed. COMPARISON: Comparison is made with prior study 12/03/2020 and 11/28/2018. FINDINGS: Breast Composition: The breasts are extremely dense, which lowers the sensitivity of mammography. There are no dominant masses or suspicious calcifications. No other significant abnormalities are identified. There has been no significant change since the prior study. BI/SCRN MAMM (CAD)W/LUCHO BILAT IMPRESSION: Stable bilateral screening mammogram. Yearly follow-up mammogram recommended. (A) ASSESSMENT CATEGORY: BIRADS Category 1: Negative. A letter regarding these results will be sent to the patient by the facility within 30 days. Approximately 10% of breast cancers are not detected by mammography. A normal mammogram should not delay biopsy of a clinically suspicious abnormality. [id number] Electronically Signed: Harshad Robbins MD at 13:20 EDT ,
== END | disposition home or self-care (01) ==
LOC: OPBI 12:09
PROVIDERS: PCP Internal Medicine; Visit Provider Internal Medicine
DX: Z12.31 Encounter for screening mammogram for malignant neoplasm of breast (principal)
CPT/HCPCS: 77063; 77067

== ENCOUNTER → 2022-12-07 | Outpatient (CLI) | payer MEDICARE, BC, OTHER, SELFPAY ==
--- NOTE | 2022-12-07 11:04 | BD_ITS ---
STUDY: DUAL ENERGY X-RAY ABSORPTIOMETRY / DXA REASON FOR EXAM: Female, 67 years old. Z780 TECHNIQUE: Bone Mineral Density (BMD) measurements of lumbar spine and bilateral hips were obtained. COMPARISON: Comparison is made with prior study of December 03, 2020. FINDINGS: Lumbar Spine (L1-L4): g/cm2 (0.987) / T-score (-0.5) / Z-score (1.4) Findings are suggestive of normal bone density with a low fracture risk. Left Femur Total: g/cm2 (0.853) / T-score (-0.7) / Z-score (0.6) Left Femoral Neck: g/cm2 (0.766) / T-score (-0.7) / Z-score (0.9) Right Femur Total: g/cm2 (0.827) / T-score (-0.9) / Z-score (0.4) Right Femoral Neck: g/cm2 (0.786) / T-score (-0.6) / Z-score (1.1) The T-Scores on the most recent prior examination were: Lumbar Spine (L1-L4): There has been worsening of bone density since the previous examination. Left Femur Total: which represents an improvement of 6.4%. Right Femur Total: which represents an improvement of 7.6%. BD/Dexa Bone Density Study IMPRESSION: The patient is considered normal as outlined below according to World [place] Organization (WHO) criteria with a low fracture risk. There has been improvement of bone density since the previous examination. Reference Information: The T-score is the number of standard deviations above or below the standard which is normal for young adults at their peak bone mineral density. The World Health Organization (WHO) interprets the T-scores as follows: Above -1 Normal bone density Between -1 and -2.5 Osteopenia Equal to / or below -2.5 Osteoporosis As a practical clinical guideline, osteopenia may be graded as follows: Mild -1 through -1.5 Moderate -1.6 through -2.0 Severe -2.1 through -2.4 The Z-score is the number of standard deviations above or below age-matched controls. A Z-score of less than -1.5 would be considered abnormal. References: 1. NIH Osteoporosis and Related Bone Diseases www osteo.org 2. International Society for Clinical Densitometry www iscd.org 3. National Osteoporosis Foundation www nof.org Electronically Signed: Harshad Robbins MD at 9:22 EDT ,
== END | disposition home or self-care (01) ==
LOC: OPBD 10:53
PROVIDERS: PCP Internal Medicine; Referring Provider Internal Medicine; Visit Provider Internal Medicine
DX: Z78.0 Asymptomatic menopausal state (principal)
CPT/HCPCS: 77080

== ENCOUNTER 2023-05-10 14:00 | Emergency (ER) | payer MEDICARE, BC, OTHER, SELFPAY ==
[2023-05-10 14:03] VITALS: BP 100/74; PULSE 84; RESP 18; TEMP 36.6; O2SAT 97; BMI 24.5
--- NOTE | 2023-05-10 14:48 | EDS_ITS ---
HPI History of Present Illness Chief Complaint: Upper Extremity Injury Informant: patient Occured/Mechanism Mechanism/Context: Yes fall Onset/Context/Timing Onset: Today Narrative Narrative: Patient fell in mud this morning injuring her right wrist. She noted swelling over the extensor surface of her wrist. She is able to write but has pain with moving her fingers. No tenderness or pain at the elbow. She denies any other injury from the fall. She is not on anticoagulants. [facility] Medical History (Updated 05/10/23 @ 15:[address] Catarina Benavides MD) Osteoarthritis Medical History no medical history no medical history Home Medications ibuprofen 200 mg tablet 400 mg PO PRN PRN Pain Or Fever 06/23/20 [History Last Taken Unknown] meloxicam 7.5 mg tablet See Rx Instructions PO DAILY #30 tabs 06/07/21 [Rx Last Taken Unknown] Allergy/AdvReac Type Severity Reaction Status Date / Time acetaminophen [From Percocet] AdvReac nausea, vom Verified 05/10/23 14:01 oxycodone [From Percocet] AdvReac nausea, vom Verified 05/10/23 14:01 Social History Smoking Status: Never smoker alcohol intake: current alcohol intake frequency: holidays/special occasions only what type of physical activity do you participate in: walking ROS ROS ED Constitutional Constitutional ED: Denies chills or fever(s) Eyes Eyes: Denies discharge from eye(s) ENT ENT ED: Denies discharge from eye(s), rhinorrhea or sore throat Cardiovascular Cardiovascular: Denies chest pain Respiratory/Chest Respiratory/Chest: Denies cough or dyspnea Gastrointestinal Gastrointestinal: Denies abdominal pain, nausea or vomiting Genitourinary Genitourinary ED: Denies dysuria Musculoskeletal Musculoskeletal: Reports extremity pain; Denies back pain Integumentary Denies Abrasions or rash Neurologic Neurologic: Denies headache(s) or paresthesias Psychiatric Psychiatric: Denies anxiety or depression Allergic/Immunologic Allergic/Immunologic ED: Denies lip swelling or urticaria EXAM Physical Exam Const Vital Signs: 05/10/23 14:03 Temperature 97.9 F Temperature Source Temporal Pulse Rate 84 Respiratory Rate 18 Blood Pressure 100/74 Blood Pressure Mean 82 Pulse Ox 97 Oxygen Delivery Method Room Air Positive well nourished and well developed General Appearance ED: well developed HEENT Reports normocephalic and head/scalp atraumatic Eyes PERRL and EOMs intact bilaterally Neck supple Chest Wall inspection of chest normal and palpation of chest normal Resp normal respiratory effort and clear to auscultation bilaterally Cardio regular rate and regular rhythm GI normal to inspection, nondistended, normoactive bowel sounds Palpation: soft Extremity Extremity Narrative: Tenderness palpation along the radial side of the right wrist with mild extensor edema. No tenderness of the fingers themselves. No tenderness to the elbow with full range of motion. No skin laceration or abrasion. Neuro oriented x3 and no sensory deficits noted Sensorium / Orientation: alert Motor Exam: strength 5/5 throughout Psych mental status grossly normal Skin no rashes or lesions noted MDM MDM MDM Narrative Medical decision making narrative: Patient did take ibuprofen prior to arrival. Right wrist x-rays obtained to evaluate for fracture. Radiography Diagnostic Testing: Radiology Impression Wrist X-Ray 05/10/23 15:05 IMPRESSION: Avulsion fracture of the ulnar styloid. Soft tissue swelling. Electronically Signed: Harshad Robbins MD at 15:34 EDT , Treatment and Re-Evaluation Narrative: Right wrist x-ray per my interpretation reveals no obvious fracture. Radiology interpretation is reviewed. They do feel patient has an ulnar styloid fracture. My review of images this does appear smooth and rounded. When I spoke with the patient she has no pain to this area but also denies any prior wrist injury. Patient be treated with a Velcro wrist splint which be appropriate therapy whether this is an acute fracture or not. Discharge Plan Triage Chief Complaint: Upper Extremity Injury ED Provider: Catarina Benavides Dx/Rx/DC Orders Clinical Impression: Right wrist sprain Instructions: ED Wrist Sprain Prescriptions: No Action meloxicam 7.5 mg tablet See Rx Instructions PO DAILY Qty: 30 0RF Rx Instructions: 1-2 tabs PO daily; ibuprofen 200 MG tablet 400 mg PO PRN PRN (Reason: Pain Or Fever) Primary Care Provider: Sheila Gomes Referrals: Sheila Gomes MD [Primary Care Provider] - 10-14 Days if not better Disposition Disposition: Home, Self Care
--- NOTE | 2023-05-10 15:05 | RAD_ITS ---
STUDY: X-RAY - RIGHT WRIST REASON FOR EXAM: Female, 67 years old. Pain following a fall. TECHNIQUE: 3 view(s) of the wrist were obtained. COMPARISON: None. FINDINGS: Avulsion fracture of the ulnar styloid. Normal radiocarpal articulation. Normal distal radioulnar articulation. Normal carpal bones. Normal carpal articulations. Normal carpometacarpal articulation of the thumb. Normal second through fifth carpometacarpal articulations. Normal visualized metacarpal bones. Soft tissue swelling. RAD/Wrist min 3 Views IMPRESSION: Avulsion fracture of the ulnar styloid. Soft tissue swelling. Electronically Signed: Harshad Robbins MD at 15:34 EDT ,
== END 2023-05-10 16:09 | disposition home or self-care (01) ==
PROVIDERS: Emergency Provider Emergency Medicine; PCP Internal Medicine; Visit Provider Emergency Medicine
DX: S63.91XA Sprain of unspecified part of right wrist and hand, initial encounter (principal); W01.0XXA Fall on same level from slipping, tripping and stumbling without subsequent striking against object, initial encounter
CPT/HCPCS: 73110; 99283

== ENCOUNTER → 2025-05-14 | Outpatient (CLI) | payer MEDICARE, BC, OTHER, SELFPAY | END | disposition home or self-care (01) | LOC: LABSPEC 15:32 | PROVIDERS: PCP Internal Medicine; Referring Provider Otolaryngology; Visit Provider Otolaryngology | DX: J32.9 Chronic sinusitis, unspecified (principal) | CPT/HCPCS: 87070; 87077; 87186; 87205 ==